=== PATIENT | female | born 1985 | race Caucasian/White ===

== ENCOUNTER → 2017-03-06 | Outpatient (CLI) | payer OTHER ==
[~2017-03-06] VITALS: Ht 158.8 cm; Wt 68.0 kg
[~2017-03-06] MED LIST: BUPRENORPHINE HC8 MG SL; PRENATAL TABLE1 EAC3 PO
[2017-03-06 19:16] VITALS: BP 103/59
== END | disposition home or self-care (01) ==
LOC: IVINF 19:00
DX: Z31.82 Encounter for Rh incompatibility status (principal); Z3A.28 28 weeks gestation of pregnancy; Z67.11 Type A blood, Rh negative
CPT/HCPCS: 96372

== ENCOUNTER 2017-05-10 08:45 | Inpatient (IN) | payer OTHER ==
[2017-05-10] VITALS (7 sets, daily range): BP systolic 106–137; BP diastolic 48–80
[~2017-05-10] VITALS: Ht 157.5 cm; Wt 68.0 kg
[2017-05-10] MEDS ORDERED: BUPRENORPHINE HC2 MG SL (09:08)
[2017-05-10 12:08] LABS: AMPHETAMINE NEGATIVE (500 ng/mL); BARBITURATES NEGATIVE (200 ng/mL); BENZODIAZEPINES NEGATIVE (150 ng/mL); COCAINE NEGATIVE (150 ng/mL); INTERNAL CONTROLS VALID? YES; METHADONE NEGATIVE (200 ng/mL); METHAMPHETAMINE NEGATIVE (500 ng/mL); OPIATES (MORPHINE) NEGATIVE (100 ng/mL); OXYCODONE NEGATIVE (100 ng/mL); PHENCYCLIDINE NEGATIVE (25 ng/mL); PROPOXYPHENE NEGATIVE (300 ng/mL); THC CANNABINOIDS PRESUMPTIVE POSITIVE (50 ng/mL); TRICYCLIC ANTIDEPRESSANTS NEGATIVE (300 ng/mL)
[2017-05-10 12:09] LABS: ADD MEDTOX COMMENT Y
[2017-05-10 13:05] LABS: EOSINOPHIL (%) 0.1 % (0-5); HEMATOCRIT 40.2 % (36.0-46.0); IMMATURE GRANULOCYTE (%) 0.6 % (0.0-0.7); IMMATURE GRANULOCYTE COUNT 0.1 K/uL; INSTRUMENT ABS NEUTROPHIL CT 12.7 K/uL; MCH 31.1 PG (29.0-34.0); MCHC 33.6 G/DL (30.0-36.0); MCV 92.6 FL (83-99); MEAN PLAT.VOLUME 9.7 uM^3 (9.5-12.4); MONOCYTE (%) 2.4 % (3-12); MONOCYTE COUNT 0.3 K/uL (0-0.8); NEUTROPHIL (%) 89.8 % (45-76); NEUTROPHIL COUNT 12.7 K/uL (1.8-6.4); PLATELET COUNT 267 K/uL (156-360); RBC DIS.WIDTH-CV 12.6 % (11.8-14.6); RBC DIS.WIDTH-SD 42.8 % (39-53); RED BLOOD COUNT 4.34 M/uL (3.80-5.20); WHITE BLOOD COUNT 14.1 K/uL (4.1-10.2)
[2017-05-11 07:10] VITALS: BP 123/76
[2017-05-11 15:38] VITALS: BP 108/66
[2017-05-11 22:56] VITALS: BP 130/62
[2017-05-12 07:42] VITALS: BP 122/72
[2017-05-12] MEDS ORDERED: IBUPROFEN800 MG PO (09:13)
[2017-05-12 14:47] VITALS: BP 115/67
== END 2017-05-12 17:00 | disposition home or self-care (01) | DRG 775 ==
LOC: LDRP-OP → 2WEST 08:46 → LDRP-OP 06-27 12:05
PROVIDERS: Nurse Practitioner
DX: O60.14X0 Preterm labor third trimester with preterm delivery third trimester, not applicable or unspecified (principal); O99.324 Drug use complicating childbirth; F11.20 Opioid dependence, uncomplicated; F12.90 Cannabis use, unspecified, uncomplicated; O69.82X0 Labor and delivery complicated by other cord entanglement, without compression, not applicable or unspecified; O99.344 Other mental disorders complicating childbirth; F41.0 Panic disorder [episodic paroxysmal anxiety]; O99.334 Smoking (tobacco) complicating childbirth; F17.210 Nicotine dependence, cigarettes, uncomplicated; Z37.0 Single live birth; Z3A.37 37 weeks gestation of pregnancy
CPT/HCPCS: 83030; 84999; 85025; 86870; 86900; 86901; 86905; J0571; J2790

== ENCOUNTER 2018-01-14 16:19 | Emergency (ER) | payer OTHER ==
[~2018-01-14] VITALS: Ht 160 cm; Wt 58.1 kg
[~2018-01-14 16:19] MED LIST changes: +BUPRENORPHINE HC2 MG SL; +IBUPROFEN800 MG PO
[2018-01-14 16:55] LABS: HEMATOCRIT 43.7 % (36.0-46.0); HEMOGLOBIN 14.8 G/DL (11.9-15.5); MCH 30.7 PG (29.0-34.0); MCHC 33.9 G/DL (30.0-36.0); MCV 90.7 FL (83-99); PLATELET COUNT 223 K/uL (156-360); RBC DIS.WIDTH-CV 12.6 % (11.8-14.6); RBC DIS.WIDTH-SD 41.6 % (39-53); RED BLOOD COUNT 4.82 M/uL (3.80-5.20); WHITE BLOOD COUNT 5.4 K/uL (4.1-10.2)
[2018-01-14 17:05] LABS: ALBUMIN 4.2 g/dL (3.2-4.8); CHLORIDE 105 mEq/L (99-109); SODIUM 140 mEq/L (136-147)
[2018-01-14 17:07] LABS: GLUCOSE 97 mg/dL (70-99); TOTAL PROTEIN 7.7 g/dL (6.4-8.3)
[2018-01-14 17:09] LABS: TOTAL BILIRUBIN 0.6 mg/dL (0.0-1.0)
[2018-01-14 17:11] LABS: ALKALINE PHOSPHATASE 51 IU/L (3-129); CREATININE 0.7 mg/dL (0.6-1.3); GFR ESTIMATE (CALCULATED) > 59 mL/min/
[2018-01-14 17:12] LABS: UREA NITROGEN (BUN) 7 mg/dL (9-23)
[2018-01-14 17:13] LABS: AST (GOT) 16 IU/L (2-34)
[2018-01-14 17:14] LABS: ALT (GPT) 11 IU/L (3-49); LIPASE 38 U/L (1.0-51.0)
[2018-01-14 17:20] LABS: QUANTITATIVE HCG < 4.0 MIU/ML
[2018-01-14 17:44] LABS: APPEARANCE CLEAR ((CLEAR)); BILIRUBIN NEGATIVE; BLOOD LARGE; COLOR YELLOW ((YELLOW)); GLUCOSE (STRIP) NEGATIVE; KETONES NEGATIVE; LEUKOCYTES SMALL; NITRITE NEGATIVE; PROTEIN (STRIP) NEGATIVE; SPECIFIC GRAVITY 1.008 (1.000-1.030)
[2018-01-14 17:57] LABS: BACTERIA RARE /HPF; CALCIUM OXALATE CRYSTALS 1+ /HPF; EPITHELIAL CELLS RARE /HPF; MUCUS TRACE /LPF; RED BLOOD CELLS 0-5 /HPF (0-5); UCUL ADDED? YES; WHITE BLOOD CELLS 30-40 /HPF (0-5)
[2018-01-14] MEDS ORDERED: KEFLEX500 MG PO (19:47)
[2018-01-14] MEDS ORDERED: K-DUR20 MEQ PO (19:47)
[2018-01-14] MEDS ORDERED: ZOFRAN4 MG SL (19:47)
[2018-01-14 20:02] VITALS: BP 136/84
== END 2018-01-14 20:04 | disposition home or self-care (01) ==
LOC: EME 16:19
PROVIDERS: Physician Assistant
DX: E87.6 Hypokalemia (principal); N39.0 Urinary tract infection, site not specified; R11.2 Nausea with vomiting, unspecified; R19.7 Diarrhea, unspecified; I45.10 Unspecified right bundle-branch block; Z88.2 Allergy status to sulfonamides; F17.200 Nicotine dependence, unspecified, uncomplicated
CPT/HCPCS: 80053; 81003; 83690; 84702; 85027; 87077; 87086; 87186; 93005; 99281; 99284; J3480; J7030